=== PATIENT | male | born 1980 | race Caucasian/White ===

== ENCOUNTER 2017-03-27 23:13 | Emergency (ER) | payer OTHER ==
[~2017-03-27] VITALS: Ht 170.2 cm; Wt 81.8 kg
[2017-03-27 23:14] VITALS: BP 136/88
== END 2017-03-27 23:47 | disposition left against medical advice (07) ==
LOC: EMS 23:16
DX: Z53.21 Procedure and treatment not carried out due to patient leaving prior to being seen by health care provider (principal)